=== PATIENT | male | born 1930 | race Caucasian/White ===

== ENCOUNTER 2017-07-04 11:19 | Emergency (ER) | payer OTHER ==
[2017-07-04 11:21] VITALS: BP 136/62; PULSE 76; RESP 18; TEMP 98.1; O2SAT 95
[2017-07-04] MEDS ORDERED: BACLOFEN 10 MG TAB PO ONE (12:15)
[2017-07-04] MEDS ORDERED: traMADol HCL 50 MG TAB PO ONE (12:15)
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
--- NOTE | 2017-07-04 14:05 | RADRPT ---
EXAM DATE/TIME: 07/04/2017 13:00 [facility] COMPARISON: No previous studies available for comparison. INDICATIONS : Neck pain for two days. RADIATION DOSE: 26.35 CTDIvol (mGy) MEDICAL HISTORY : Cardiovascular disease. Hypertension. SURGICAL HISTORY : Pacemaker. Cholecystectomy. ENCOUNTER: Initial ACUITY: 2 days PAIN SCALE: 10/10 LOCATION: Left neck region. TECHNIQUE: Volumetric scanning of the cervical spine was performed. Multiplanar reconstructions in the sagittal, coronal and oblique axial planes were performed. Using automated exposure control and adjustment o f the mA and/or kV according to patient size, radiation dose was kept as low as reasonably achievable to obtain optimal diagnostic quality images. DICOM format image data is available electronically f or review and comparison. FINDINGS: VERTEBRAE: Normal vertebral body height. ALIGNMENT: No evidence of subluxation. Calcified plaque involving the carotid arteries bilaterally. C2-C3: The bony spinal canal is normal in size. No evidence of disc bulge or herniation. The neural forami na are bilaterally patent. C3-C4: There is a mild central bulge. No abutment of the cord or central canal stenosis. Bony uncovertebral hypertrophy generates mild bilateral neural foraminal narrowing. C4-C5: There is disc space narrowing with a mild broad-based disc osteophyte complex. No central canal steno sis. Bony uncovertebral hypertrophy generates mild right neural foraminal narrowing. The left remains patent. C5-C6: There is disc space narrowing with a broad-based disc osteophyte complex eccentric to the right that flattens the right ventral portion of the cord slightly. Bony uncovertebral hypertrophy contributes t o bilateral lateral recess narrowing more pronounced on the right. Bilateral moderate neural foramina l narrowing observed. C6-C7: There is disc space narrowing with a broad-based disc osteophyte complex. There is flattening of the ventral portion of the cord. Bony uncovertebral hypertrophy contributes to bilateral lateral recess a nd moderate bilateral neural foraminal narrowing. C7-T1: The bony spinal canal is normal in size. No evidence of disc bulge or herniation. The neural forami na are bilaterally patent. CONCLUSION: 1. Multilevel degenerative changes as detailed at each level in the above discussion. 2. Carotid artery atherosclerotic calcifications. Eugenio Shaw Jr., MD on July 04, 2017 at 13:58 Board Certified Radiologist. This report was verified electronically.
[2017-07-04] MEDS ORDERED: TRAM50TA PO ×2 (14:23→14:29)
[2017-07-04] MEDS ORDERED: BACL10TA PO (14:23)
[2017-07-04 14:49] VITALS: BP 132/81
== END 2017-07-04 15:08 | disposition home or self-care (01) ==
LOC: NEPC 11:19
DX: M62.838 Other muscle spasm (principal); M47.812 Spondylosis without myelopathy or radiculopathy, cervical region; R20.2 Paresthesia of skin; I10 Essential (primary) hypertension; I50.9 Heart failure, unspecified; I25.2 Old myocardial infarction; Z79.82 Long term (current) use of aspirin
CPT/HCPCS: 72125